=== PATIENT | male | born 1995 | race Caucasian/White ===

== ENCOUNTER 2018-05-10 09:53 | Emergency (ER) | payer OTHER ==
[2018-05-10 10:10] VITALS: BP 135/84; PULSE 89; RESP 18; TEMP 99; O2SAT 99
--- NOTE | 2018-05-10 10:32 | C.PDOC ---
History Of Present Illness 23 y/o male presents to the ED complaining of recurrent penile discharge for 2 months. Symptoms present only with urination. States he sometimes sees it staining his underwear, more prevalent in the morning. He also reports subjective fever but denies any abdominal pain, nausea, or vomiting. Patient states he had similar symptoms last summer, s/p outpatient treatment, and tested negative for STD. He denies high risk sexual activity, reports unprotected sex with 1 monogamous partner. Denies concern for STD. Denies any penile lesions or testicular pain or swelling. Time Seen by Provider: 05/10/18 10:14 Chief Complaint (Nursing): Male Genitourinary History Per: Patient History/Exam Limitations: no limitations Onset/Duration Of Symptoms: Days Current Symptoms Are (Timing): Still Present Past Medical History Reviewed: Historical Data, Nursing Documentation, Vital Signs Vital Signs: Last Vital Signs Temp 99 F 05/10/18 10:06 Pulse 89 05/10/18 10:06 Resp 18 05/10/18 10:06 BP 135/84 05/10/18 10:06 Pulse Ox 99 05/10/18 10:06 - Medical History PMH: No Chronic Diseases Surgical History: No Surg Hx Family History: States: Unknown Family Hx - Social History Hx Tobacco Use: Yes Hx Alcohol Use: No Hx Substance Use: Yes - Immunization History Hx Tetanus Toxoid Vaccination: No Hx Influenza Vaccination: No Hx Pneumococcal Vaccination: No Review Of Systems Except As Marked, All Systems Reviewed And Found Negative. Constitutional: Negative for: Fever, Chills Gastrointestinal: Negative for: Nausea, Vomiting, Abdominal Pain Genitourinary: Positive for: Penile Discharge. Negative for: Dysuria, Frequency, Rash, Penile Pain Neurological: Negative for: Weakness, Numbness Physical Exam - Physical Exam Appears: Non-toxic, No Acute Distress Skin: Warm, Dry, No Rash Head: Atraumatic, Normacephalic Eye(s): bilateral: Normal Inspection, PERRL, EOMI Neck: Normal ROM Chest: Symmetrical Respiratory: No Accessory Muscle Use, Other (NARD) Gastrointestinal/Abdominal: Soft, No Tenderness, No Distention Male Genital: Normal Inspection (with no penile lesions), No Testicular Tenderness, No Testicular Swelling, No Circumcised Extremity: Bilateral: Atraumatic, Normal ROM Pulses: Left Dorsalis Pedis: Normal, Right Dorsalis Pedis: Normal Neurological/Psych: Oriented x3 Gait: Steady ED Course And Treatment O2 Sat by Pulse Oximetry: 99 (RA) Pulse Ox Interpretation: Normal Reevaluation Time: 11:14 Reassessment Condition: Unchanged (PT DOES NOT WISH STD TX @ THIS TIME. WILL FU ) Medical Decision Making Medical Decision Making: Impression: Penile discharge with urination Initial Plan: - Urinalysis - Urine culture - Chlamydia/GC swab sent Disposition Counseled Patient/Family Regarding: Diagnosis, Need For Followup - Disposition Referrals: [facility] [Outside] [facility] [Outside] Jose Julien Jr., MD [Staff Provider] - Disposition: HOME/ ROUTINE Disposition Time: 11:14 Condition: GOOD Additional Instructions: FOLLOW UP CLINIC FOR UROLOGY. Forms: [facility] (Bulgarian), General Discharge Instructions - Clinical Impression Clinical Impression: Penile discharge - Scribe Statement The provider has reviewed the documentation as recorded by the Kevinibricci Brasher Provider Attestation: All medical record entries made by the Scribe were at my direction and personally dictated by me. I have reviewed the chart and agree that the record accurately reflects my personal performance of the history, physical exam, medical decision making, and the department course for this patient. I have also personally directed, reviewed, and agree with the discharge instructions and disposition.
[2018-05-10 10:56] LABS: SQUAMOUS EPITHIAL 1 /hpf (0-5); URINE BILIRUBIN NEGATIVE (NEGATIVE); URINE BLOOD NEGATIVE (NEGATIVE); URINE CLARITY Clear (Clear); URINE COLOR Yellow (YELLOW); URINE GLUCOSE (UA) NORMAL (Normal); URINE LEUKOCYTE ESTERASE NEG Leu/uL (Negative); URINE PROTEIN NEGATIVE (NEGATIVE); URINE UROBILINOGEN NORMAL mg/dL (0.2-1.0)
== END 2018-05-10 11:25 | disposition home or self-care (01) ==
LOC: C.ER 09:53
DX: R36.9 Urethral discharge, unspecified (principal)